=== PATIENT | male | born 2000 | race Caucasian/White ===

== ENCOUNTER 2025-04-17 18:22 | Emergency (ER) | payer OTHER ==
[~2025-04-17] VITALS: Ht 180.3 cm; Wt 81.6 kg
[2025-04-17] MEDS ORDERED: IBUPROFEN 600 MG TAB PO ONE (23:05)
== END 2025-04-17 23:35 | disposition home or self-care (01) ==
LOC: ED 18:22
DX: S16.1XXA Strain of muscle, fascia and tendon at neck level, initial encounter (principal); S09.90XA Unspecified injury of head, initial encounter; M51.87 Other intervertebral disc disorders, lumbosacral region; M51.44 Schmorl's nodes, thoracic region; V49.40XA Driver injured in collision with unspecified motor vehicles in traffic accident, initial encounter; Y93.89 Activity, other specified; Y92.410 Unspecified street and highway as the place of occurrence of the external cause; Y99.8 Other external cause status